=== PATIENT | male | born 1965 | race Hispanic/Latino ===

== ENCOUNTER 2017-05-16 17:32 | Inpatient (IN) | payer BC ==
[~2017-05-16] VITALS: Ht 182.9 cm; Wt 127.0 kg
[2017-05-16 18:10] LABS: BASOPHILS % 0.2 % (0.0-1.0); EOSINOPHILS # (AUTO) 0.1 (0.0-0.4); EOSINOPHILS % 0.7 % (0.0-6.0); HEMOGLOBIN 16.5 g/dL (14.0-18.0); LYMPHOCYTES # (AUTO) 1.6 (1.0-3.2); MEAN CORPUSCULAR HGB CONC 35.1 g/dL (31-35); MONOCYTES # (AUTO) 0.4 (0.2-0.8); MONOCYTES % 4.7 % (4.4-11.3); NEUTROPHILS # (AUTO) 6.9 (2.1-6.9); NEUTROPHILS % 75.7 % (38.7-80.0); PLATELET COUNT 273 x10e3/uL (140-360); RED CELL DISTRIBUTION WIDTH 12.2 % (11.7-14.4)
[2017-05-16 18:15] LABS: BILIRUBIN,URINE 2+ (NEGATIVE); CLARITY,URINE CLEAR (CLEAR); COLOR,URINE ORANGE (YELLOW); KETONES,URINE NEGATIVE (NEGATIVE); LEUKOCYTE ESTERASE ,URINE TRACE (NEGATIVE); NITRITE,URINE NEGATIVE (NEGATIVE); PROTEIN,URINE DIPSTICK 1+ (NEGATIVE); URINE UROBILINOGEN 4 mg/dL (0.2 - 1)
[2017-05-16 18:23] LABS: BACTERIA,URINE RARE /HPF
[2017-05-16 18:24] LABS: MUCUS,URINE FEW (RARE); TRANSITIONAL EPI CELLS,URINE RARE
[2017-05-16 18:29] LABS: ALANINE AMINOTRANSFERASE 433 IU/L (0-55); ALBUMIN 3.9 g/dL (3.5-5.0); ALBUMIN/GLOBULIN RATIO 1.1 (0.8-2.0); ALKALINE PHOSPHATASE 111 IU/L (40-150); AMYLASE 1120 U/L (25-125); ANION GAP 12.5 mmol/L (8-16); BLOOD UREA NITROGEN 14 mg/dL (7-26); BUN/CREATININE RATIO 16 (6-25); CARBON DIOXIDE 29 mmol/L (22-29); CHLORIDE 101 mmol/L (98-107); CREATININE, SERUM 0.89 mg/dL (0.72-1.25); EST GLOMERULAR FILTRATION RATE > 60 ML/MIN (60-); GLUCOSE 99 mg/dL (74-118); POTASSIUM 3.5 mmol/L (3.5-5.1); SODIUM 139 mmol/L (136-145)
[2017-05-16 18:55] LABS: LIPASE 318 U/L (8-78)
[2017-05-16] MEDS ORDERED: ONDANSETRON HCL INJ 2 MG/ML VIAL IV PRN (20:00)
[2017-05-16] MEDS: HYDROMORPHONE 1MG/1ML INJ IV PRN (20:22)
[2017-05-16] MEDS: SODIUM CHLORIDE 0.9% 1000ML 1,000 ML IV SCH (20:22)
[2017-05-16 21:20] VITALS: BP 132/80
[2017-05-16] MEDS: CEFOXITIN 1GM/ DEXTROSE 50ML 50 ML IV SCH (21:42)
[2017-05-16 22:00] VITALS: BP 132/80
[2017-05-16] MEDS: METRONIDAZOLE 500MG/NS 100ML 100 ML IV SCH (23:40)
[2017-05-17 00:04] VITALS: BP 132/71
[2017-05-17] MEDS: CHLORDIAZEPOXIDE HCL 25 MG CAP PO SCH ×2 (00:07→06:07)
[2017-05-17] MEDS: HYDROMORPHONE 1MG/1ML INJ IV PRN ×2 (00:07→21:57)
[2017-05-17] MEDS: SODIUM CHLORIDE 0.9% 1000ML 1,000 ML IV SCH ×5 (03:49→19:55)
[2017-05-17 04:00] VITALS: BP 143/72
[2017-05-17] MEDS: CEFOXITIN 1GM/ DEXTROSE 50ML 50 ML IV SCH (05:44)
[2017-05-17] MEDS: METRONIDAZOLE 500MG/NS 100ML 100 ML IV SCH (05:44)
[2017-05-17 07:01] LABS: BASOPHILS % 0.3 % (0.0-1.0); EOSINOPHILS # (AUTO) 0.1 (0.0-0.4); EOSINOPHILS % 1.1 % (0.0-6.0); HEMATOCRIT 42.2 % (38.2-49.6); HEMOGLOBIN 14.5 g/dL (14.0-18.0); LYMPHOCYTES # (AUTO) 1.3 (1.0-3.2); LYMPHOCYTES % 13.3 % (18.0-39.1); MEAN CORPUSCULAR HEMOGLOBIN 33.3 pg (28-32); MEAN CORPUSCULAR HGB CONC 34.4 g/dL (31-35); MEAN CORPUSCULAR VOLUME 96.8 fL (81-99); MONOCYTES # (AUTO) 0.5 (0.2-0.8); MONOCYTES % 4.8 % (4.4-11.3); NEUTROPHILS # (AUTO) 8.1 (2.1-6.9); NEUTROPHILS % 80.2 % (38.7-80.0); PLATELET COUNT 226 x10e3/uL (140-360); RED BLOOD COUNT 4.36 x10e6/uL (4.3-5.7); RED CELL DISTRIBUTION WIDTH 12.4 % (11.7-14.4)
[2017-05-17 07:18] LABS: ALANINE AMINOTRANSFERASE 286 IU/L (0-55); ALBUMIN 3.2 g/dL (3.5-5.0); ALKALINE PHOSPHATASE 104 IU/L (40-150); AMYLASE 511 U/L (25-125); ANION GAP 12.3 mmol/L (8-16); BLOOD UREA NITROGEN 12 mg/dL (7-26); BUN/CREATININE RATIO 13 (6-25); CALCIUM 8.2 mg/dL (8.4-10.2); CARBON DIOXIDE 25 mmol/L (22-29); CHLORIDE 106 mmol/L (98-107); CREATININE, SERUM 0.91 mg/dL (0.72-1.25); EST GLOMERULAR FILTRATION RATE > 60 ML/MIN (60-); GLUCOSE 87 mg/dL (74-118); LIPASE 447 U/L (8-78); POTASSIUM 4.3 mmol/L (3.5-5.1); SODIUM 139 mmol/L (136-145)
[2017-05-17 08:33] VITALS: BP 119/79
[2017-05-17] MEDS ORDERED: LORAZEPAM INJ 2 MG/ML VIAL IV PRN (11:15)
[2017-05-17] MEDS: HEPARIN SOD (PORCINE) 5,000 UNIT/ML VIAL SC SCH ×2 (12:00→20:56)
[2017-05-17] MEDS: FAMOTIDINE 20 MG/2 ML VIAL IV SCH ×2 (12:27→20:55)
[2017-05-17] MEDS: LEVOFLOXACIN 500MG/D5W 100ML 100 ML IV SCH (12:28)
--- NOTE | 2017-05-17 13:50 | Diagnostic Imaging Report ---
EXAM: MRI MRCP WO DATE: 05/17/2017 7:00 AM Time stamp on exam: INDICATION: Abdominal pain. Concern for choledocholithiasis. COMPARISON: CT dated 05/16/2017 TECHNIQUE: MRCP protocol performed using1.5 Payal. Sequences obtained include axial T2 FRFSE FS, coronal and axial T2 SSFSE, SSFSE coronal spins. FINDINGS: Lower thorax: Posterior right base consolidation with possible trace pleural effusion. The gallbladder is normal in appearance, containing numerous dependent filling defects. No wall thickening or pericholecystic fluid. The common bile duct is normal in caliber. There are no filling defects or strictures. No intrahepatic biliary dilation. Similar to prior CT, there is mild pancreatic inflammation. No pancreatic ductal dilatation. Within the limitations of the exam, the liver, spleen and adrenal glands are unremarkable. Moderate size hiatal hernia. No upper abdominal free fluid or lymphadenopathy. The soft tissues and bones are unremarkable. IMPRESSION: Mild peripancreatic inflammation, consistent with history of pancreatitis. Numerous small gallbladder calculi without evidence of cholecystitis. No evidence of choledocholithiasis. Posterior right basilar lung consolidation with possible trace right pleural effusion. This could represent atelectasis and/or pneumonia. Signed by: Dr. Jun Garza MD on 05/17/2017 1:46 PM
[2017-05-17 18:06] VITALS: BP 126/71
--- NOTE | 2017-05-17 19:20 | Consultation ---
DATE OF CONSULTATION: May 17, 2017 HISTORY OF PRESENT ILLNESS: The patient is a 52-year-old male who presents with complaints of epigastric abdominal pain. He has had similar pains in the past, but never this severe. Pains wake him up at night and last for 15-30 minutes and then resolve. This time, however, he developed pain about 2 days ago that persisted, although he says the pain is somewhat less now. Patient had a workup that revealed gallstones. He had elevated lipase and amylase which are somewhat improved today. MRCP revealed changes suggestive of pancreatitis any he does have gallstones. PAST MEDICAL HISTORY: Significant for previous hernia repair. He has no chronic medical problems. ALLERGIES: NO KNOWN DRUG ALLERGIES. FAMILY HISTORY: Significant for coronary artery disease. SOCIAL HISTORY: The patient drinks alcohol, about 2 beers a day. Works as a yard laborer. Does not smoke cigarettes. REVIEW OF SYSTEMS: As stated above, otherwise was negative. PHYSICAL EXAMINATION: VITALS: Normal. He is afebrile. GENERAL: The patient is awake and alert. HEENT: Reveals no scleral icterus. NECK: Has no masses. LUNGS: Equal breath sounds and are clear bilaterally. CARDIAC: Regular rate and rhythm with no murmur. ABDOMEN: Tender in the epigastrium. There is no mass. No signs of peritonitis. EXTREMITIES: No edema. LABORATORY DATA: White blood cell count is 10,000. Hemoglobin and hematocrit are normal. Chemistries: Elevated amylase and lipase on admission and they are still elevated today, although amylase is down. Bilirubin was 3.3 on admission and is down to 1.7 today. IMAGING: MRCP reveals gallstones, but no common bile duct stones. ASSESSMENT: This is a 52-year-old male with gallstone pancreatitis. He will likely benefit from cholecystectomy once his pancreatitis has improved. Tentatively scheduled for 3 days from now. The proposed surgery was explained to the patient. Thank you for asking me to see Mr. Crum. Job#: [id number]
[2017-05-17 20:00] VITALS: BP 133/64
[2017-05-18] VITALS: BP 124/58
[2017-05-18] MEDS: SODIUM CHLORIDE 0.9% 1000ML 1,000 ML IV SCH ×3 (01:12→15:40)
[2017-05-18 04:00] VITALS: BP 118/63
[2017-05-18 07:56] LABS: ALBUMIN 3.1 g/dL (3.5-5.0); BILIRUBIN,DIRECT 0.5 mg/dL (0.0-5.0)
[2017-05-18] MEDS: HEPARIN SOD (PORCINE) 5,000 UNIT/ML VIAL SC SCH ×2 (09:10→21:25)
[2017-05-18 11:13] VITALS: BP 120/68
[2017-05-18] MEDS: LEVOFLOXACIN 500MG/D5W 100ML 100 ML IV SCH (12:33)
[2017-05-18 17:13] VITALS: BP 127/72
[2017-05-18 20:00] VITALS: BP 139/67
[2017-05-19] VITALS: BP 121/63
[2017-05-19 04:00] VITALS: BP 123/62
[2017-05-19] MEDS: SODIUM CHLORIDE 0.9% 1000ML 1,000 ML IV SCH ×2 (04:33→18:15)
[2017-05-19] MEDS: HEPARIN SOD (PORCINE) 5,000 UNIT/ML VIAL SC SCH (08:50)
[2017-05-19] MEDS ORDERED: HYDROMORPHONE 1MG/1ML INJ IV PRN (11:00)
[2017-05-19] MEDS: LEVOFLOXACIN 500MG/D5W 100ML 100 ML IV SCH (11:42)
[2017-05-19 13:43] VITALS: BP 109/71
[2017-05-19 17:36] VITALS: BP 136/62
[2017-05-19 20:00] VITALS: BP 111/67
[2017-05-20] VITALS: BP 112/69
[2017-05-20 04:00] VITALS: BP 104/56
[2017-05-20 08:51] VITALS: BP 102/61
[2017-05-20] MEDS: SODIUM CHLORIDE 0.9% 1000ML 1,000 ML IV SCH ×3 (09:24→20:30)
[2017-05-20] MEDS: LEVOFLOXACIN 500MG/D5W 100ML 100 ML IV SCH (11:41)
[2017-05-20] MEDS ORDERED: BUPIVACAINE 0.5%/EPI 30 ML SDV INJ ONE (12:05)
[2017-05-20] MEDS ORDERED: HYDROMORPHONE 1MG/1ML INJ IV PRN (13:00)
[2017-05-20] MEDS ORDERED: ONDANSETRON HCL INJ 2 MG/ML VIAL IV PRN (13:00)
[2017-05-20] MEDS ORDERED: LEVOFLOXACIN 500MG/D5W 100ML 100 ML IV SCH (13:00)
[2017-05-20] MEDS: HYDROCODONE/APAP 5MG-325MG TAB PO PRN (14:51)
[2017-05-20 16:00] VITALS: BP 145/70
[2017-05-20] MEDS ORDERED: PROPOFOL IV EMULSION 10 MG/ML 20 ML VIAL ONE (18:02)
[2017-05-20] MEDS ORDERED: SEVOFLURANE INHAL SOLN 250 ML PEN BTL ONE (18:02)
[2017-05-20] MEDS ORDERED: LIDOCAINE HCL 2% LOCAL INJ 5 ML SDV VIAL INJ ONE (18:02)
[2017-05-20] MEDS ORDERED: ACETAMINOPHEN 1000 MG/100 ML IV ONE (18:02)
[2017-05-20] MEDS ORDERED: NEOSTIGMINE 5 MG/5ML SYR ONE (18:02)
[2017-05-20] MEDS ORDERED: GLYCOPYRROLATE INJ 1MG/ 5 ML SYR ONE (18:02)
[2017-05-20] MEDS ORDERED: LABETALOL HCL IV 5 MG/ML 20ML MDV ONE (18:02)
[2017-05-20] MEDS ORDERED: ROCURONIUM BROMIDE 10 MG/ML 5ML VIAL ONE (18:02)
[2017-05-20] MEDS ORDERED: DEXAMETHASONE SOD PHOS INJ 4 MG/ML VIAL ONE (18:02)
[2017-05-20] MEDS ORDERED: ONDANSETRON HCL INJ 2 MG/ML VIAL ONE (18:02)
[2017-05-20] MEDS ORDERED: LIDOCAINE HCL 2% JELLY 5 ML TUBE ONE (18:02)
[2017-05-20] MEDS ORDERED: FENTANYL CITRATE/PF 100MCG/2 ML INJ ONE (18:13)
[2017-05-20] MEDS ORDERED: MIDAZOLAM HCL 2 MG/2 ML VIAL ONE (18:13)
[2017-05-20 20:00] VITALS: BP 146/73
--- NOTE | 2017-05-20 21:12 | Operative Report ---
DATE OF PROCEDURE: May 20, 2017 PREOPERATIVE DIAGNOSIS: Acute pancreatitis, cholelithiasis. POSTOPERATIVE DIAGNOSIS: Acute pancreatitis, cholelithiasis. PROCEDURE: 1. Diagnostic laparoscopy. 2. Laparoscopic cholecystectomy. STONE AND CONCRETE WASHER: None. ANESTHESIA: General endotracheal. INDICATIONS AND FINDINGS: The patient is a 52-year-old male admitted to the hospital with complains of epigastric abdominal pain. Workup revealed pancreatitis with gallstones. Pancreatitis was resolved. At surgery, found multiple stones in the gallbladder, most of which were small. The largest was about 3 mm in diameter. Common bile duct was about 6 mm in diameter. Liver, stomach and lower abdomen appeared normal. Some adhesions in the lower abdomen at site of previous hernia repair. TECHNIQUE: After adequate general endotracheal anesthesia with patient in the supine position, the abdomen was prepped and draped in a sterile fashion with [place] solution. In the epigastrium away from the area of previous hernia repair which is in the mid abdomen, skin and subcutaneous tissue was infiltrated with 1/2% Marcaine. Transverse incision was made. Abdominal wall was elevated and Veress needle was introduced. Pneumoperitoneum was then created. A 10 mm trocar and cannula was then passed through this wound. Laparoscopic camera was introduced. Initial laparoscopy revealed gallbladder to be mildly distended. Liver appeared normal. There were no obvious changes of pancreatitis. A 10 mm trocar and cannula placed in the mid abdomen above the area of previous hernia repair and two 5 mm trocars and cannulas placed in the right upper quadrant also under direct vision. Fundus of the gallbladder was grasped and retracted superiorly. Neck of the gallbladder was grasped and retracted laterally. Peritoneum over the neck of the gallbladder was incised. The gallbladder cystic duct junction was dissected free. Cystic artery was also dissected free. The neck of the gallbladder completely dissected free. Cystic artery was divided between Hemoclips close to the gallbladder. Cystic duct was also divided between Hemoclips with 3 clips being left on the common bile duct side. The gallbladder was dissected free from the liver using scissors and electrocautery. During the dissection, the gallbladder was opened and decompressed. Some stones fell from the gallbladder and these were all retrieved. Once the gallbladder was completely free, it was placed into an Endo pouch and brought through the epigastric cannula. There were multiple small stones. Gallbladder bed was inspected for hemostasis. There was one point which was bleeding which was controlled with electrocautery. It was irrigated with saline. All fluid aspirated and inspected for hemostasis which was seen to be adequate. Instruments and cannulas were then removed. Pneumoperitoneum was evacuated. Wounds were then closed. Fascia in the umbilical and epigastric wound closed with 0 Vicryl. Skin to all wounds closed with elicia. Sterile dressings applied to each wound. Patient tolerated procedure well. Estimated blood loss was 30 mL. There were no complications. All counts were correct. Patient was taken to the recovery room in satisfactory condition. Job#: [id number]
[2017-05-21] VITALS: BP 125/61
[2017-05-21] MEDS: HYDROCODONE/APAP 5MG-325MG TAB PO PRN (00:01)
[2017-05-21 04:00] VITALS: BP 114/63
[2017-05-21 08:00] VITALS: BP 126/66
[2017-05-21] MEDS: SODIUM CHLORIDE 0.9% 1000ML 1,000 ML IV SCH (08:56)
--- NOTE | 2017-05-21 09:02 | Discharge Summary ---
FINAL DIAGNOSES 1. Acute gallstones. 2. Alcoholic pancreatitis, resolved. SECONDARY DIAGNOSIS: Possible acute alcoholic hepatitis, resolved. CONSULTANTS: Dr. Vela. PROCEDURES/STUDIES PERFORMED 1. Magnetic resonance cholangiopancreatography. 2. Laparoscopic cholecystectomy. 3. Abdominal computerized tomography as an outpatient. HISTORY: Per [facility] HOSPITAL COURSE: Patient was admitted and initially n.p.o. with IV fluids. On the hospital day, his lipase was a little higher. Subsequently, normalized. His LFTs got better as well. MRCP was negative for common bile duct stone. MRCP showed possible infiltrate. Therefore, empirically the patient was left on IV Levaquin to help out with the gallstones and the MRCP findings. Clinically, the patient did not have pneumonia. Subsequently, the patient underwent an uneventful laparoscopic cholecystectomy. Today, is postop day #1. The patient is doing well, and will be discharged home. He received heparin subcutaneous for DVT prophylaxis while hospitalized. Patient was encouraged on multiple occasions to stop all alcoholic beverages. Patient will follow up with Dr. Vela next week, and also with his primary care doctor, Dr. Benitez in a couple of weeks. CONDITION ON DISCHARGE: Stable. DISCHARGE MEDICATIONS: Please see medication reconciliation form. SERGEI RODRÍGUEZ M.D. Job#: [id number]
== END 2017-05-21 09:24 | disposition home or self-care (01) | DRG 414 ==
LOC: ER 17:32 → MED/SURG 20:33
PROVIDERS: ADMIT Internal Medicine; ATTEND Internal Medicine
PROC: 0FJ44ZZ Inspection of Gallbladder, Percutaneous Endoscopic Approach (ICD-10-PCS; 2017-05-20)
PROC: 0FT40ZZ Resection of Gallbladder, Open Approach (ICD-10-PCS; principal; 2017-05-20 12:07)
DX: K80.20 Calculus of gallbladder without cholecystitis without obstruction (principal); K85.10 Biliary acute pancreatitis without necrosis or infection; K70.10 Alcoholic hepatitis without ascites; K85.20 Alcohol induced acute pancreatitis without necrosis or infection; F10.20 Alcohol dependence, uncomplicated
CPT/HCPCS: 36415; 74181; 80053; 80076; 81001; 82150; 83690; 85025; 87086; 88304; 96360; 96374; 96375; 99284; J1100; J1170; J1644; J1956; J2001; J2250; J2405; J7030

== ENCOUNTER 2024-07-02 11:43 | Inpatient (IN) | payer BC ==
[~2024-07-02] VITALS: Ht 182.9 cm; Wt 117.9 kg
[2024-07-02] VITALS (21 sets, daily range): BP systolic 102–134; BP diastolic 50–88; PULSE 62–70; RESP 14–20; TEMP 97.9–98; O2SAT 97–100
[2024-07-02 13:25] LABS: BASOPHILS % 0.6 % (0.0-1.0); EOSINOPHILS % 0.4 % (0.0-6.0); HEMATOCRIT 19.5 % (38.2-49.6); LYMPHOCYTES # (AUTO) 1.3 (1.0-3.2); LYMPHOCYTES % 26.9 % (18.0-39.1); MEAN CORPUSCULAR HEMOGLOBIN 17.8 pg (28-32); MEAN CORPUSCULAR HGB CONC 23.6 g/dL (31-35); MEAN CORPUSCULAR VOLUME 75.3 fL (81-99); MONOCYTES # (AUTO) 0.3 (0.2-0.8); MONOCYTES % 6.6 % (4.4-11.3); NEUTROPHILS # (AUTO) 3.1 (2.1-6.9); NEUTROPHILS % 65.3 % (38.7-80.0); PLATELET COUNT 379 x10e3/uL (140-360); RED BLOOD COUNT 2.59 x10e6/uL (4.3-5.7); RED CELL DISTRIBUTION WIDTH 16.7 % (11.7-14.4); WHITE BLOOD COUNT 4.69 x10e3/uL (4.8-10.8)
[2024-07-02] MEDS ORDERED: SODIUM CHLORIDE 0.9% 1000ML 1,000 ML IV STA (13:27)
[2024-07-02 13:34] LABS: HEMOGLOBIN 4.6 g/dL (14.0-18.0)
[2024-07-02 13:43] LABS: INR 0.93; PARTIAL THROMBOPLASTIN TIME 29.7 seconds (23.8-35.5)
[2024-07-02] MEDS ORDERED: FUROSEMIDE INJ 10 MG/ML 2 ML VIAL IV PRN (13:45)
[2024-07-02] MEDS ORDERED: SODIUM CHLORIDE 0.9% 250ML 250 ML IV ONE (13:45)
[2024-07-02 14:01] LABS: ALBUMIN 3.8 g/dL (3.5-5.0); ALBUMIN/GLOBULIN RATIO 1.5 (0.8-2.0); ANION GAP 13.7 mmol/L (8-16); BILIRUBIN,TOTAL 0.8 mg/dL (0.2-1.2); CALCIUM 9.2 mg/dL (8.4-10.2); CREATININE, SERUM 0.77 mg/dL (0.72-1.25); POTASSIUM 3.7 mmol/L (3.5-5.1); TOTAL PROTEIN 6.4 g/dL (6.5-8.1)
[2024-07-02 15:09] LABS: CREATINE KINASE 68 IU/L (30-200)
[2024-07-02 15:16] LABS: TROPONIN I < 0.001 ng/mL (0-0.300)
[2024-07-02] MEDS: OCTREOTIDE ACETATE 500 MCG in SODIUM CHLORIDE 0.9% 250ML 250 ML IV SCH (15:58)
[2024-07-02] MEDS: SODIUM CHLORIDE 0.9% 1000ML 1,000 ML IV SCH (15:59)
[2024-07-02] MEDS: OCTREOTIDE ACETATE 0.05 MG/ML AMP IV STA (16:04)
[2024-07-02] MEDS ORDERED: SODIUM CHLORIDE 0.9% 500ML 500 ML ONE (17:03)
[2024-07-03] VITALS (15 sets, daily range): BP systolic 115–158; BP diastolic 49–77; PULSE 55–69; RESP 10–18; TEMP 97.8–98.2; O2SAT 97–100
[2024-07-03 09:18] LABS: BASOPHILS # (AUTO) 0.1 (0.0-0.1); BASOPHILS % 0.8 % (0.0-1.0); EOSINOPHILS % 0.7 % (0.0-6.0); HEMATOCRIT 30.9 % (38.2-49.6); HEMOGLOBIN 8.3 g/dL (14.0-18.0); LYMPHOCYTES # (AUTO) 1.1 (1.0-3.2); LYMPHOCYTES % 17.9 % (18.0-39.1); MEAN CORPUSCULAR HEMOGLOBIN 21.8 pg (28-32); MEAN CORPUSCULAR HGB CONC 26.9 g/dL (31-35); MEAN CORPUSCULAR VOLUME 81.3 fL (81-99); MONOCYTES # (AUTO) 0.4 (0.2-0.8); MONOCYTES % 6.9 % (4.4-11.3); NEUTROPHILS # (AUTO) 4.3 (2.1-6.9); NEUTROPHILS % 73.4 % (38.7-80.0); PLATELET COUNT 301 x10e3/uL (140-360); RED CELL DISTRIBUTION WIDTH 19.1 % (11.7-14.4); WHITE BLOOD COUNT 5.91 x10e3/uL (4.8-10.8)
[2024-07-03 09:46] LABS: ALBUMIN 3.8 g/dL (3.5-5.0); ALBUMIN/GLOBULIN RATIO 1.3 (0.8-2.0); ANION GAP 13.2 mmol/L (8-16); BILIRUBIN,TOTAL 2.5 mg/dL (0.2-1.2); CALCIUM 8.5 mg/dL (8.4-10.2); CREATININE, SERUM 0.77 mg/dL (0.72-1.25); POTASSIUM 4.2 mmol/L (3.5-5.1); TOTAL PROTEIN 6.7 g/dL (6.5-8.1)
[2024-07-03 10:30] LABS: TROPONIN I 0.013 ng/mL (0-0.300)
== END 2024-07-03 17:45 | disposition home or self-care (01) | DRG 812 ==
LOC: ER 13:30 → ERHOLD 14:29 → ICU 16:26
PROVIDERS: ADMIT Internal Medicine; ATTEND Internal Medicine
DX: D50.9 Iron deficiency anemia, unspecified (principal); Z90.49 Acquired absence of other specified parts of digestive tract; F17.200 Nicotine dependence, unspecified, uncomplicated; F10.90 Alcohol use, unspecified, uncomplicated; I10 Essential (primary) hypertension
CPT/HCPCS: 36415; 71045; 80053; 82550; 84484; 85025; 85610; 85730; 86850; 86900; 86920; 93005; 99252; 99284; J2353; J2470; J7030; J7040; J7050; P9016